=== PATIENT | female | born 1985 | race Caucasian/White ===

== ENCOUNTER 2017-10-30 18:22 | Emergency (ER) | payer OTHER ==
[~2017-10-30] VITALS: Ht 167.6 cm; Wt 65.8 kg
[~2017-10-30 18:22] MED LIST: ALBU90OI6 INH; AZIT250 PO; BENZ100A PO; CIPR500 PO; CYCL10 PO; Cipro500 MG PO; Cleocin HCl300 MG PO; HYDACE5 PO; HYDHOMSY PO; IBUP600 PO; IBUP800 PO; NAPR500 PO; Naprosyn500 MG PO; Norco 5-325 Ta1 EACH PO; ONDA4ODT MM; PENVK500 PO; PERM5TC TOP; Pseudoephedrine30 MG PO; Zofran Odt4 MG SL; [UNRECOGNIZED DRUG - OTHER]
[2018-04-03] MEDS ORDERED: SUMA6I (15:16)
== END 2017-10-30 20:17 | disposition home or self-care (01) ==
LOC: ER 18:22
DX: M25.531 Pain in right wrist (principal); F17.200 Nicotine dependence, unspecified, uncomplicated; Z98.51 Tubal ligation status; Z88.0 Allergy status to penicillin; Z88.5 Allergy status to narcotic agent; W18.30XA Fall on same level, unspecified, initial encounter
CPT/HCPCS: 29125; 73110; 99283

== ENCOUNTER 2017-11-01 20:40 | Emergency (ER) | payer OTHER ==
[~2017-11-01] VITALS: Ht 167.6 cm; Wt 65.8 kg
[2018-04-03] MEDS ORDERED: SUMA6I (15:16)
== END 2017-11-01 21:37 | disposition home or self-care (01) ==
LOC: ER 20:40
DX: M25.531 Pain in right wrist (principal); F17.200 Nicotine dependence, unspecified, uncomplicated; Z88.5 Allergy status to narcotic agent; Z88.0 Allergy status to penicillin; Z98.51 Tubal ligation status
CPT/HCPCS: 99282

== ENCOUNTER 2017-12-09 13:48 | Emergency (ER) | payer OTHER ==
[~2017-12-09] VITALS: Ht 167.6 cm; Wt 72.6 kg
[2017-12-09] MEDS ORDERED: Norco 5-325 Ta1 EACH PO (15:13)
[2017-12-09] MEDS ORDERED: Keflex500 MG PO (15:13)
[2018-04-03] MEDS ORDERED: SUMA6I (15:16)
== END 2017-12-09 15:42 | disposition home or self-care (01) ==
LOC: ER 13:48
DX: N61.0 Mastitis without abscess (principal); F17.200 Nicotine dependence, unspecified, uncomplicated; Z88.5 Allergy status to narcotic agent; Z88.0 Allergy status to penicillin
CPT/HCPCS: 76642; 96372; 99284; J0780; J1100; J1885

== ENCOUNTER → 2017-12-29 | Outpatient (CLI) | payer OTHER ==
[~2017-12-29] MED LIST changes: +Keflex500 MG PO
== END | disposition home or self-care (01) ==
LOC: LAB EV 18:16 → LAB SHORT 18:16
DX: R06.02 Shortness of breath (principal)
CPT/HCPCS: 85379

== ENCOUNTER 2018-01-12 19:42 | Emergency (ER) | payer OTHER ==
[~2018-01-12] VITALS: Ht 167.6 cm; Wt 74.8 kg
[2018-01-12] MEDS ORDERED: FLUC150A PO (20:38)
== END 2018-01-12 20:57 | disposition home or self-care (01) ==
LOC: ER 19:42
DX: B37.3 Candidiasis of vulva and vagina (principal); Z88.5 Allergy status to narcotic agent; Z88.0 Allergy status to penicillin; Z79.2 Long term (current) use of antibiotics; F17.200 Nicotine dependence, unspecified, uncomplicated
CPT/HCPCS: 99283

== ENCOUNTER 2018-02-11 06:15 | Emergency (ER) | payer OTHER ==
[~2018-02-11] VITALS: Ht 165.1 cm; Wt 68.0 kg
[~2018-02-11 06:15] MED LIST changes: +FLUC150A PO
[2018-02-11] MEDS ORDERED: SUMA25 PO (06:31)
== END 2018-02-11 08:07 | disposition home or self-care (01) ==
LOC: ER 06:15
DX: Z88.0 Allergy status to penicillin (principal); Z88.5 Allergy status to narcotic agent; F17.200 Nicotine dependence, unspecified, uncomplicated; Z98.51 Tubal ligation status
CPT/HCPCS: J1200; J1885; J2765; J7030

== ENCOUNTER 2018-02-12 05:40 | Emergency (ER) | payer OTHER ==
[~2018-02-12] VITALS: Ht 167.6 cm; Wt 65.8 kg
[~2018-02-12 05:40] MED LIST changes: +SUMA25 PO
== END 2018-02-12 08:50 | disposition home or self-care (01) ==
LOC: ER 05:40
DX: S80.862A Insect bite (nonvenomous), left lower leg, initial encounter (principal); F17.200 Nicotine dependence, unspecified, uncomplicated; Z88.5 Allergy status to narcotic agent; Z88.0 Allergy status to penicillin; W57.XXXA Bitten or stung by nonvenomous insect and other nonvenomous arthropods, initial encounter
CPT/HCPCS: 99281

== ENCOUNTER 2018-05-19 11:31 | Emergency (ER) | payer OTHER ==
[~2018-05-19] VITALS: Ht 167.6 cm; Wt 72.6 kg
[~2018-05-19 11:31] MED LIST changes: +SUMA6I
== END 2018-05-19 13:00 | disposition home or self-care (01) ==
LOC: ER 11:31
DX: M65.4 Radial styloid tenosynovitis [de Quervain] (principal); Z88.5 Allergy status to narcotic agent; Z88.0 Allergy status to penicillin; Z79.899 Other long term (current) drug therapy; F17.200 Nicotine dependence, unspecified, uncomplicated
CPT/HCPCS: 99282

== ENCOUNTER 2018-07-21 10:26 | Emergency (ER) | payer SELFPAY ==
[~2018-07-21] VITALS: Ht 167.6 cm; Wt 77.1 kg
[2018-07-21] MEDS ORDERED: Naprosyn500 MG PO (11:48)
[2018-07-21] MEDS ORDERED: CYCL10 PO (11:48)
== END 2018-07-21 11:56 | disposition home or self-care (01) ==
LOC: ER 10:26
DX: S16.1XXA Strain of muscle, fascia and tendon at neck level, initial encounter (principal); S50.11XA Contusion of right forearm, initial encounter; Z88.0 Allergy status to penicillin; Z88.5 Allergy status to narcotic agent; Z87.891 Personal history of nicotine dependence; V69.9XXA Occupant (driver) (passenger) of heavy transport vehicle injured in unspecified traffic accident, initial encounter
CPT/HCPCS: 99283

== ENCOUNTER 2018-09-08 13:24 | Emergency (ER) | payer OTHER ==
[~2018-09-08] VITALS: Ht 167.6 cm; Wt 68.0 kg
[2018-09-08 14:02] LABS: Influenza A Negative (NEGATIVE); Influenza B Negative (NEGATIVE)
[2018-09-08] MEDS ORDERED: Flonase 0.05% N16 GM (14:16)
[2018-09-08] MEDS ORDERED: Sudogest30 MG PO (14:16)
[2018-09-08] MEDS ORDERED: EAR WAX DROPS15 ML BOTHEARS (14:16)
== END 2018-09-08 14:23 | disposition home or self-care (01) ==
LOC: ER 13:24
PROVIDERS: Physician Assistant
DX: J06.9 Acute upper respiratory infection, unspecified (principal); H61.23 Impacted cerumen, bilateral; Z88.5 Allergy status to narcotic agent; Z88.0 Allergy status to penicillin
CPT/HCPCS: 87804; 99283

== ENCOUNTER 2018-11-08 12:30 | Emergency (ER) | payer SELFPAY ==
[~2018-11-08] VITALS: Ht 167.6 cm; Wt 68.0 kg
[~2018-11-08 12:30] MED LIST changes: +EAR WAX DROPS15 ML BOTHEARS; +Flonase 0.05% N16 GM; +Sudogest30 MG PO
[2018-11-08 13:12] LABS: BASOPHILS ABSOLUTE AUTO 0.05 K/mm3 (0.00-0.23); BASOPHILS PERCENT AUTO 0 % (0-2); EOSINOPHILS ABSOLUTE AUTO 0.04 K/mm3 (0.00-0.68); EOSINOPHILS PERCENT AUTO 0 % (0-6); Hematocrit 39.3 % (33.0-51.0); Hemoglobin 12.9 g/dL (11.5-16.0); IMMATURE GRAN ABSOLUTE AUTO 0.02 K/mm3 (0.00-0.10); IMMATURE GRAN PERCENT AUTO 0 % (0-1); LYMPHOCYTES PERCENT AUTO 46 % (21-46); MONOCYTES ABSOLUTE AUTO 0.67 K/mm3 (0.16-1.47); MONOCYTES PERCENT AUTO 5 % (4-13); Mean Corpuscular HGB 31.9 pg (26.0-34.0); Mean Corpuscular HGB Conc 32.8 g/dL (31.5-36.5); Mean Corpuscular Volume 97 fL (80-100); Mean Platelet Volume 10.7 fL (9.1-12.4); NEUTROPHILS ABSOLUTE AUTO 6.04 K/mm3 (1.96-9.15); NEUTROPHILS PERCENT AUTO 48 % (41-73); Platelet Count 320 K/mm3 (150-400); RDW Coefficient Variation 12.2 % (11.7-14.2); RDW Standard Deviation 43.8 fL (35.1-46.3); Red Blood Cell Count 4.05 M/mm3 (3.80-5.20); White Blood Cell Count 12.52 K/mm3 (4.00-11.30)
[2018-11-08 13:35] LABS: International Normalized Ratio 0.95; Prothrombin Time Results 10.1 Sec (9.7-11.5)
[2018-11-08 13:40] LABS: Alanine Aminotransfer (ALT/SGP 36 U/L (12-78); Albumin, Blood 3.7 g/dL (3.4-5.0); Albumin/Globulin Ratio 1.3 (0.8-1.8); Alk Phos 72 U/L (50-136); Anion Gap 8 mmol/L (6-16); Aspartate Aminotrans (AST/SGOT 16 U/L (12-37); Bilirubin, Total 0.2 mg/dL (0.1-1.0); Blood Urea Nitrogen 9 mg/dL (8-24); Bun/Creatinine Ratio 10.1 (12.0-20.0); CO2, Blood 23 mmol/L (21-32); Calcium, Blood 8.1 mg/dL (8.5-10.1); Chloride, Blood 114 mmol/L (98-108); Creatinine, Blood 0.89 mg/dL (0.40-1.00); Globulin, Blood 2.9 g/dL (2.2-4.0); Glomerular Filtration Rate >60 (60-); Glucose, Blood 145 mg/dL (70-99); Potassium, Blood 3.5 mmol/L (3.5-5.5); Sodium, Blood 145 mmol/L (136-145); Total Protein, Blood 6.6 g/dL (6.4-8.2)
[2018-11-08] MEDS ORDERED: NAPR550 PO (15:12)
[2018-11-08] MEDS ORDERED: Norco 5-325 Ta1 EACH PO (15:12)
== END 2018-11-08 15:24 | disposition home or self-care (01) ==
LOC: ER 12:30
PROVIDERS: Physician Assistant
DX: N92.1 Excessive and frequent menstruation with irregular cycle (principal); F17.210 Nicotine dependence, cigarettes, uncomplicated
CPT/HCPCS: 36415; 76830; 76856; 80053; 85025; 85610; 86850; 86900; 86901; 99284-25

== ENCOUNTER 2020-12-24 10:07 | Emergency (ER) | payer OTHER ==
[~2020-12-24] VITALS: Ht 167.6 cm; Wt 65.8 kg
[~2020-12-24 10:07] MED LIST changes: +CEPH500 PO; +KETO10 PO; +NAPR550 PO
[2020-12-24] MEDS ORDERED: KETO10 PO (11:03)
[2020-12-24] MEDS ORDERED: CYCL10 PO (11:03)
== END 2020-12-24 11:25 | disposition home or self-care (01) ==
LOC: ER 10:07
DX: R51.9 Headache, unspecified (principal); Z88.5 Allergy status to narcotic agent; Z88.0 Allergy status to penicillin; Z87.891 Personal history of nicotine dependence
CPT/HCPCS: 96372; 99283; A9270; J1885

== ENCOUNTER 2021-11-23 14:13 | Emergency (ER) | payer OTHER ==
[~2021-11-23] VITALS: Ht 167.6 cm; Wt 68.0 kg
== END 2021-11-23 17:12 | disposition home or self-care (01) ==
LOC: ER 14:13
DX: G43.909 Migraine, unspecified, not intractable, without status migrainosus (principal); Z88.0 Allergy status to penicillin; Z88.5 Allergy status to narcotic agent; Z88.8 Allergy status to other drugs, medicaments and biological substances; Z79.899 Other long term (current) drug therapy; Z87.891 Personal history of nicotine dependence
CPT/HCPCS: A9270; J1200; J1885; J2765; J7030

== ENCOUNTER → 2023-06-20 | Outpatient (CLI) | payer OTHER ==
[2023-06-21 10:34] LABS: Candida species (DNA Probe) Negative (NEGATIVE); G. vaginalis (DNA Probe) Positive (NEGATIVE); T. vaginalis (DNA Probe) Negative (NEGATIVE)
== END | disposition home or self-care (01) ==
LOC: LAB SHORT 19:02 → LAB 19:02
PROVIDERS: Physician Assistant Medical
DX: L29.3 Anogenital pruritus, unspecified (principal)
CPT/HCPCS: 87480; 87510; 87660

== ENCOUNTER 2023-10-10 14:20 | Emergency (ER) | payer BC, OTHER ==
[~2023-10-10] VITALS: Ht 167.6 cm; Wt 79.4 kg
[2023-10-10 15:03] VITALS: BP 129/102
[2023-10-10 15:58] LABS: BASOPHILS ABSOLUTE AUTO 0.06 K/mm3 (0.00-0.23); BASOPHILS PERCENT AUTO 1 % (0-2); EOSINOPHILS ABSOLUTE AUTO 0.07 K/mm3 (0.00-0.68); EOSINOPHILS PERCENT AUTO 1 % (0-6); Hematocrit 39.9 % (33.0-51.0); Hemoglobin 13.1 g/dL (11.5-16.0); IMMATURE GRAN ABSOLUTE AUTO 0.02 K/mm3 (0.00-0.10); IMMATURE GRAN PERCENT AUTO 0 % (0-1); LYMPHOCYTES ABSOLUTE AUTO 3.12 K/mm3 (0.84-5.20); LYMPHOCYTES PERCENT AUTO 32 % (21-46); MONOCYTES ABSOLUTE AUTO 0.49 K/mm3 (0.16-1.47); MONOCYTES PERCENT AUTO 5 % (4-13); Mean Corpuscular HGB 29.9 pg (26.0-34.0); Mean Corpuscular HGB Conc 32.8 g/dL (31.5-36.5); Mean Corpuscular Volume 91 fL (80-100); Mean Platelet Volume 10.6 fL (9.1-12.4); NEUTROPHILS ABSOLUTE AUTO 6.15 K/mm3 (1.96-9.15); NEUTROPHILS PERCENT AUTO 62 % (41-73); Platelet Count 380 K/mm3 (150-400); RDW Coefficient Variation 11.9 % (11.7-14.2); RDW Standard Deviation 39.5 fL (35.1-46.3); Red Blood Cell Count 4.38 M/mm3 (3.80-5.20); White Blood Cell Count 9.91 K/mm3 (4.00-11.30)
[2023-10-10 16:00] LABS: Appearance, Urine Clear (Clear); Bilirubin, Urine Neg (Neg); Blood, Urine Neg (Neg); Glucose Qualitative, Urine 3+ (Neg); Ketones, Urine Neg (Neg); Leukocyte Esterase, Urine Neg (Neg); Nitrite, Urine Neg (Neg); Source, Urine Clean Catch; Urobilinogen, Urine NORM (Normal)
[2023-10-10 16:11] LABS: Albumin, Blood 3.7 g/dL (3.4-5.0); Albumin/Globulin Ratio 1.1 (0.8-1.8); Bilirubin, Total 0.2 mg/dL (0.1-1.0); Bun/Creatinine Ratio 10.3 (12.0-20.0); Calcium, Blood 9.3 mg/dL (8.5-10.1); Creatinine, Blood 0.68 mg/dL (0.40-1.00); Globulin, Blood 3.5 g/dL (2.2-4.0); Potassium, Blood 3.7 mmol/L (3.5-5.5); Total Protein, Blood 7.2 g/dL (6.4-8.2)
[2023-10-10 16:15] LABS: Protein, Urine 1+ (Neg); pH, Urine 6.5 (5.0-8.0)
[2023-10-10 16:17] LABS: Color, Urine Pale Yellow (P-Yellow)
== END 2023-10-10 17:18 | disposition home or self-care (01) ==
LOC: ER 14:20
PROVIDERS: Student in an Organized Health Care Education/Training Program
DX: R10.2 Pelvic and perineal pain (principal); N80.03 Adenomyosis of the uterus; Z88.0 Allergy status to penicillin; Z88.8 Allergy status to other drugs, medicaments and biological substances; Z88.5 Allergy status to narcotic agent
CPT/HCPCS: 76856; 80053; 81025; 83690; 85025; 93005; 93010; 99284-25; A9270

== ENCOUNTER → 2023-10-19 | Outpatient (CLI) | payer BC, OTHER | LOC: LAB 10:39 → LAB SHORT 10:39 | DX: N92.0 Excessive and frequent menstruation with regular cycle (principal) | CPT/HCPCS: 88305 ==

== ENCOUNTER 2023-12-26 08:35 | Day surgery (SDC) | payer BC, OTHER ==
[~2023-12-26] VITALS: Ht 168 cm; Wt 87.0 kg
[2023-12-26] VITALS (13 sets, daily range): BP systolic 109–147; BP diastolic 69–101
[~2023-12-26 08:35] MED LIST changes: +OXYC5 PO; +TRAM50 PO
[2023-12-26] MEDS ORDERED: Lactated Ringer's 1,000 ML IV SCH ×2 (09:00→12:35)
[2023-12-26] MEDS ORDERED: CeFAZolin Sodium 2,000 MG in NS 100 ML IV SCH (09:00)
[2023-12-26] MEDS ORDERED: ONDA4 PO (09:05)
[2023-12-26] MEDS ORDERED: Bupivacaine 0.5% HCl 5 MG/ML 30MLVIAL ONE (09:58)
--- NOTE | 2023-12-26 10:00 | NUR ---
Ambulatory in Day Surgery History, Chart, Medications and Allergies reviewed before start of procedure.Patient confirms NPO status and agrees with scheduled surgery. Patient reports completing Chlorhexadine shower X2 prior to admission to hospital.Lungs clear T/O to Auscultation. Patient States Post-Procedure ride home has been arranged.
[2023-12-26] MEDS ORDERED: FentaNYL Citrate 50 MCG/ML 5 ML Injection ONE (10:15)
[2023-12-26] MEDS ORDERED: Rocuronium Bromide 10 MG/ML 5ML Injection IV ONE ×2 (10:15→11:36)
[2023-12-26] MEDS ORDERED: propofoL 20 ML IV ONE (10:15)
[2023-12-26] MEDS ORDERED: Dexamethasone Sod Phos 10 MG/ML 1ML VIAL ONE (10:43)
[2023-12-26] MEDS ORDERED: FentaNYL Citrate 50 MCG/ML 2 ML Injection ONE (11:36)
[2023-12-26] MEDS ORDERED: Ondansetron HCl 2 MG / ML 2ML Vial ONE (11:57)
[2023-12-26] MEDS ORDERED: Sugammadex Sodium 200 MG/2ML SDV (100 MG/ML) ONE (12:05)
[2023-12-26] MEDS ORDERED: Ondansetron 4 MG TAB PO PRN (12:40)
[2023-12-26] MEDS ORDERED: Ondansetron HCl 2 MG / ML 2ML Vial IV PRN (12:40)
[2023-12-26] MEDS ORDERED: Metoclopramide HCl 10 MG Tab PO PRN (12:40)
[2023-12-26] MEDS ORDERED: Naloxone HCl 0.4MG / ML 1ML Vial IV PRN (12:40)
[2023-12-26] MEDS ORDERED: HYDROmorphone HCl/Pf 1MG SYR IV PRN (12:40)
[2023-12-26] MEDS ORDERED: Simethicone 80 MG Chew PO PRN (12:40)
[2023-12-26] MEDS ORDERED: OxyCODONE HCL 5 MG TAB PO PRN (12:40)
[2023-12-26] MEDS ORDERED: Metoclopramide HCl 5MG / ML 2ML Vial IV PRN (12:40)
[2023-12-26] MEDS ORDERED: DiphenhydrAMINE HCL 25 MG Cap PO PRN (12:45)
[2023-12-26] MEDS ORDERED: Acetaminophen 500 MG Tab PO PRN (12:45)
[2023-12-26] MEDS ORDERED: HYDROmorphone HCl/Pf 1MG SYR ONE (12:58)
--- NOTE | 2023-12-26 13:25 | NUR ---
ARRIVAL TO SURGICAL UNIT VIA GOURNEY, STANDS EASILY TO AMBULATE TO BATHROOM w/ SBA. VOIDS & REPORTS NAUSEA STARTING. ASSISTED TO HOSPITAL BED. COOL WASHCLOTH GIVEN. LUNGS CLEAR. HRR. ABD SOFT w/ LAP SITES x 4 ACROSS. WOUND GLUE WNL; NO DRNG NOTED.
[2023-12-26] MEDS ORDERED: Estradiol 0.1 MG/24 HR Patch TOP SCH (16:00)
[2023-12-26] MEDS ORDERED: OXYC5 PO (16:18)
[2023-12-26] MEDS ORDERED: ACET500 PO (16:19)
[2023-12-26] MEDS ORDERED: ALORA1 EA10 TOP (16:19)
[2023-12-26] MEDS ORDERED: IBUP800 PO (16:20)
--- NOTE | 2023-12-26 16:41 | NUR ---
DISCHARGE HAS VOIDED x 2 SINCE ARRIVAL TO UNIT. SNACKING & TAKING IN PO FLUIDS WELL BUT HAS LINGERING NAUSEA. PT STATES THIS ISN'T NEW SHE STRUGGLES w/ MOTION SICKNESS. REQUESTS TO GO HOME & IS NOT VOMITING; KEEPING FLUIDS DOWN. ABD SITES WNL. ABD BINDER IN PLACE.
[2023-12-26] MEDS ORDERED: Ketorolac Tromethamine 30mg Vial IV SCH (18:00)
== END 2023-12-26 16:41 | disposition home or self-care (01) ==
LOC: ORSCMMR 08:35 → ORD 10:00 → SURS 13:31 → ORSCMMR 16:41
PROVIDERS: Obstetrics & Gynecology
PROC: 0UT9FZZ Resection of Uterus, Via Natural or Artificial Opening With Percutaneous Endoscopic Assistance (ICD-10-PCS; principal; 2023-12-26 10:00)
PROC: 0UT7FZZ Resection of Bilateral Fallopian Tubes, Via Natural or Artificial Opening With Percutaneous Endoscopic Assistance (ICD-10-PCS; principal; 2023-12-26 10:00)
PROC: 0UT2FZZ Resection of Bilateral Ovaries, Via Natural or Artificial Opening With Percutaneous Endoscopic Assistance (ICD-10-PCS; principal; 2023-12-26 10:00)
DX: N92.0 Excessive and frequent menstruation with regular cycle (principal); N80.03 Adenomyosis of the uterus; R10.2 Pelvic and perineal pain; N94.6 Dysmenorrhea, unspecified; D25.9 Leiomyoma of uterus, unspecified; Z79.899 Other long term (current) drug therapy; F17.290 Nicotine dependence, other tobacco product, uncomplicated
CPT/HCPCS: 86850; 86900; 86901; 88307; A9270; J0690; J1100; J1170; J2405; J2704; J2765; J3010; J7120

== ENCOUNTER → 2024-06-20 | Outpatient (CLI) | payer BC, OTHER ==
[~2024-06-20] MED LIST changes: +ACET500 PO; +ALORA1 EA10 TOP; +ONDA4 PO
== END | disposition home or self-care (01) ==
LOC: LAB 19:17 → LAB SHORT 19:17
DX: N12 Tubulo-interstitial nephritis, not specified as acute or chronic (principal)
CPT/HCPCS: 87077; 87086; 87186

== ENCOUNTER → 2024-06-20 | Outpatient (CLI) | payer BC, OTHER ==
[2024-06-20 17:08] LABS: Source, Urine Clean Catch
[2024-06-20 17:22] LABS: Bacteria Few /hpf; Mucus Light (0-Heavy); Red Blood Cells, Urine 25-50 /hpf (0-2); Squamous Epithelial Cells Few /hpf (Few)
== END | disposition home or self-care (01) ==
LOC: LAB SHORT 17:06 → LAB 17:06
PROVIDERS: Physician Assistant Medical
DX: R31.0 Gross hematuria (principal)
CPT/HCPCS: 81015